=== PATIENT | male | born 1975 | race Caucasian/White ===

== ENCOUNTER 2024-01-16 11:50 | Outpatient (CLI) | payer BC | END 2024-01-16 11:51 | disposition home or self-care (01) | LOC: BICRAD 11:50 | PROVIDERS: ATTEND Internal Medicine Rheumatology | DX: M54.2 Cervicalgia (principal); L40.59 Other psoriatic arthropathy; M50.322 Other cervical disc degeneration at C5-C6 level; M48.8X2 Other specified spondylopathies, cervical region | CPT/HCPCS: 72040; 72202 ==